=== PATIENT | female | born 1955 | race Caucasian/White ===

== ENCOUNTER 2020-06-21 23:48 | Inpatient (IN) | payer OTHER, MEDICARE ==
[~2020-06-21] VITALS: Ht 165.1 cm; Wt 86.5 kg
[2020-06-22] MEDS ORDERED: ONDANSETRON 2MG/ML, 2ML IVPush ONE
[2020-06-22] MEDS ORDERED: MORPHINE SULFATE 4 MG/ML, 1ML ONE ×2 (00:06→02:25)
[2020-06-22] MEDS ORDERED: ONDANSETRON 2MG/ML, 2ML ONE (00:06)
--- NOTE | 2020-06-22 01:05 | NUR ---
SUMMARY NOTE: THIS PT WAS RUBINA FERNANDEZ. SHE WAS COMING [place], AFTER HAVING "10 BEERS" AND HAD A GLF. PT DENIES DIZZINESS PRIOR TO FALL. PT PLACED ON CARDIAC, BP AND O2 MONITORS. BEDRAILS UP X2. AT BEDSIDE. CALL LIGHT IN REACH.
--- NOTE | 2020-06-22 01:05 | NUR ---
PT PLACED ON 2L O2 AFTER MEDICATION ADMIN.
[2020-06-22] MEDS ORDERED: OMNIPAQUE 350 MG/ML, 100ML BOTTLE ONE (02:12)
[2020-06-22] MEDS ORDERED: ASPI-496 PO (02:23)
[2020-06-22] MEDS ORDERED: MORPHINE SULFATE 4 MG/ML, 1ML IVPush ONE ×2 (02:30)
--- NOTE | 2020-06-22 02:31 | NUR ---
ERP BACK TO BEDSIDE TO UPDATE PT ON POC. AWAITING CONSULT WITH ORTHO.
--- NOTE | 2020-06-22 02:34 | NUR ---
MED REC DONE TO BEST OF PT'S ABILITY.
[2020-06-22] MEDS ORDERED: KETOROLAC 30 MG/1 ML IV PRN (03:00)
[2020-06-22] MEDS ORDERED: DOCUSATE 100 MG CAPSULE PO PRN (03:00)
[2020-06-22] MEDS ORDERED: MELATONIN 5 MG TABLET PO PRN (03:00)
[2020-06-22] MEDS ORDERED: hydrALAzine 20 MG/ML, 1ML IVPush PRN (03:00)
[2020-06-22 03:20] LABS: BASOPHILS # (AUTO) 0.03 x10^3/uL (0-0.1); BASOPHILS % (AUTO) 0 % (0-1); EOSINOPHILS # (AUTO) 0.06 x10^3/uL (0-0.4); EOSINOPHILS % (AUTO) 0 % (1-7); LYMPHOCYTES # (AUTO) 1.72 x10^3/uL (1-3.4); LYMPHOCYTES % (AUTO) 13 % (22-44); MD NO; MEAN CORPUSCULAR HEMOGLOBIN 30.9 pg (27.0-34.8); MEAN CORPUSCULAR HGB CONC 32.9 g/dL (32.4-35.8); MEAN PLATELET VOLUME 7.3 fL (7.4-10.4); MONOCYTES # (AUTO) 0.43 x10^3/uL (0.2-0.8); MONOCYTES % (AUTO) 3 % (2-9); NEUTROPHILS # (AUTO) 11.13 x10^3/uL (1.8-6.8); NEUTROPHILS % (AUTO) 83 % (42-75); PLATELET COUNT 307 x10^3/uL (130-400); RED BLOOD COUNT 3.75 x10^6/uL (3.82-5.3); RED CELL DISTRIBUTION WIDTH 15.6 % (9.6-15.2)
--- NOTE | 2020-06-22 03:20 | NUR ---
REPORT GIVEN TO
[2020-06-22 03:27] LABS: ALANINE AMINOTRANSFERASE 37 U/L (12-78); ALBUMIN 3.3 g/dL (3.4-5.0); ANION GAP 12 mmol/L (5-15); CHLORIDE 96 mmol/L (98-107); CREATININE 0.67 mg/dL (0.55-1.02)
[2020-06-22 03:29] LABS: ALKALINE PHOSPHATASE 64 U/L (45-117); BILIRUBIN,TOTAL 0.2 mg/dL (0.2-1.0); TOTAL PROTEIN 6.6 g/dL (6.4-8.2)
[2020-06-22] MEDS ORDERED: NICOTINE 14MG/24 HR PATCH.TD24 TD ONE (03:30)
[2020-06-22] MEDS ORDERED: blood pressure med (04:10)
[2020-06-22] MEDS ORDERED: ATOR40TA78 PO (04:10)
[2020-06-22 04:11] VITALS: BP 107/71
[2020-06-22] MEDS: ENOXAPARIN 40 MG/0.4 ML SQ SCH (04:37)
[2020-06-22] MEDS: ONDANSETRON 2MG/ML, 2ML IVPush PRN ×3 (04:37→19:36)
[2020-06-22] MEDS: LACTATED RINGERS 1,000 ML IV SCH ×2 (04:38→17:30)
[2020-06-22 07:47] VITALS: BP 126/80
[2020-06-22] MEDS: MORPHINE SULFATE 4 MG/ML, 1ML IVPush PRN ×3 (08:13→19:56)
[2020-06-22] MEDS: ASPIRIN 81 MG TABLET EC PO SCH (08:13)
[2020-06-22] MEDS ORDERED: LACTULOSE 10 GM/15 ML UDC PO PRN (09:00)
[2020-06-22] MEDS: POLYETHYLENE GLYCOL 17 GM PACKET PO SCH (10:13)
[2020-06-22 12:10] VITALS: BP_SYST 119; BP_SYST 138; BP_DIAS 71; BP_DIAS 80
[2020-06-22 19:42] VITALS: BP 117/73
[2020-06-22] MEDS: ATORVASTATIN 40 MG TABLET PO SCH (21:33)
[2020-06-22] MEDS: CYCLOBENZAPRINE 10 MG TABLET PO PRN (21:33)
[2020-06-22] MEDS: ACETAMINOPHEN 325 MG TABLET PO PRN (21:33)
[2020-06-23 00:31] VITALS: BP 99/63
[2020-06-23] MEDS: ONDANSETRON 2MG/ML, 2ML IVPush PRN ×3 (03:11→16:29)
[2020-06-23] MEDS: MORPHINE SULFATE 4 MG/ML, 1ML IVPush PRN ×3 (03:11→16:29)
[2020-06-23] MEDS: ENOXAPARIN 40 MG/0.4 ML SQ SCH (03:12)
[2020-06-23] MEDS: LACTATED RINGERS 1,000 ML IV SCH (05:20)
[2020-06-23] MEDS: CYCLOBENZAPRINE 10 MG TABLET PO PRN ×3 (05:20→23:35)
[2020-06-23 06:13] LABS: ANION GAP 6 mmol/L (5-15); CALCIUM 8.7 mg/dL (8.5-10.1); CHLORIDE 97 mmol/L (98-107); CREATININE 0.58 mg/dL (0.55-1.02)
[2020-06-23 06:19] LABS: BASOPHILS # (AUTO) 0.03 x10^3/uL (0-0.1); BASOPHILS % (AUTO) 0 % (0-1); EOSINOPHILS # (AUTO) 0.09 x10^3/uL (0-0.4); EOSINOPHILS % (AUTO) 1 % (1-7); LYMPHOCYTES % (AUTO) 18 % (22-44); MD NO; MEAN CORPUSCULAR HGB CONC 32.7 g/dL (32.4-35.8); MEAN CORPUSCULAR VOLUME 94.7 fL (80-100); MEAN PLATELET VOLUME 7.7 fL (7.4-10.4); MONOCYTES # (AUTO) 0.53 x10^3/uL (0.2-0.8); MONOCYTES % (AUTO) 8 % (2-9); NEUTROPHILS # (AUTO) 5.11 x10^3/uL (1.8-6.8); NEUTROPHILS % (AUTO) 72 % (42-75); PLATELET COUNT 250 x10^3/uL (130-400); RED BLOOD COUNT 3.42 x10^6/uL (3.82-5.3); RED CELL DISTRIBUTION WIDTH 15.9 % (9.6-15.2)
[2020-06-23 08:17] VITALS: BP 88/60
[2020-06-23] MEDS: POLYETHYLENE GLYCOL 17 GM PACKET PO SCH (09:00)
[2020-06-23] MEDS: ASPIRIN 81 MG TABLET EC PO SCH (09:12)
[2020-06-23] MEDS: LACTULOSE 10 GM/15 ML UDC PO SCH ×2 (09:12→19:42)
[2020-06-23 13:30] VITALS: BP 106/65
[2020-06-23 19:00] VITALS: BP 101/65
[2020-06-23] MEDS: ACETAMINOPHEN 325 MG TABLET PO PRN (19:42)
[2020-06-23] MEDS: ATORVASTATIN 40 MG TABLET PO SCH (19:42)
[2020-06-24 01:29] VITALS: BP 107/69
[2020-06-24] MEDS: ACETAMINOPHEN 325 MG TABLET PO PRN ×4 (03:37→21:14)
[2020-06-24] MEDS: ENOXAPARIN 40 MG/0.4 ML SQ SCH (03:38)
[2020-06-24 06:56] VITALS: BP 105/57
[2020-06-24] MEDS ORDERED: BISACODYL 10 MG SUPP PR ONE (08:30)
[2020-06-24 08:45] VITALS: BP 105/62
[2020-06-24] MEDS: POLYETHYLENE GLYCOL 17 GM PACKET PO SCH (09:22)
[2020-06-24] MEDS: ASPIRIN 81 MG TABLET EC PO SCH (09:27)
[2020-06-24] MEDS: CYCLOBENZAPRINE 10 MG TABLET PO PRN ×2 (09:29→21:15)
[2020-06-24] MEDS: LACTULOSE 10 GM/15 ML UDC PO SCH ×2 (09:30→21:00)
[2020-06-24] MEDS: MORPHINE SULFATE 4 MG/ML, 1ML IVPush PRN ×2 (10:13→16:17)
[2020-06-24] MEDS ORDERED: BISACODYL 10 MG SUPP ONE (12:33)
[2020-06-24 14:11] VITALS: BP 90/60
[2020-06-24] MEDS ORDERED: CYCL-259 PO (15:01)
[2020-06-24] MEDS ORDERED: TRAM50TA2 PO (15:01)
[2020-06-24] MEDS: ATORVASTATIN 40 MG TABLET PO SCH (21:14)
[2020-06-24 21:41] VITALS: BP 100/65
[2020-06-25] MEDS: ACETAMINOPHEN 325 MG TABLET PO PRN ×2 (01:03→07:59)
[2020-06-25 01:44] VITALS: BP 101/63
[2020-06-25] MEDS: ENOXAPARIN 40 MG/0.4 ML SQ SCH (04:57)
[2020-06-25] MEDS: CYCLOBENZAPRINE 10 MG TABLET PO PRN (05:01)
[2020-06-25 07:34] VITALS: BP 115/66
[2020-06-25] MEDS: ASPIRIN 81 MG TABLET EC PO SCH (07:59)
[2020-06-25] MEDS ORDERED: MELA5TAB14 PO (08:44)
[2020-06-25] MEDS ORDERED: ATOR40TA78 PO (08:44)
[2020-06-25] MEDS ORDERED: DOCU100C33 PO (08:44)
[2020-06-25] MEDS: LACTULOSE 10 GM/15 ML UDC PO SCH (09:00)
[2020-06-25] MEDS: POLYETHYLENE GLYCOL 17 GM PACKET PO SCH (09:00)
== END 2020-06-25 10:10 | DRG 552 ==
LOC: ED 06-22 00:18 → EDIP 06-22 03:55 → 4NE 06-22 04:02
PROVIDERS: ADMIT Hospitalist; ATTEND Family Medicine
DX: S32.119A Unspecified Zone I fracture of sacrum, initial encounter for closed fracture (principal); S32.591A Other specified fracture of right pubis, initial encounter for closed fracture; S32.592A Other specified fracture of left pubis, initial encounter for closed fracture; F10.120 Alcohol abuse with intoxication, uncomplicated; F17.210 Nicotine dependence, cigarettes, uncomplicated; I10 Essential (primary) hypertension; G89.11 Acute pain due to trauma; I25.10 Atherosclerotic heart disease of native coronary artery without angina pectoris; K59.00 Constipation, unspecified; W01.0XXA Fall on same level from slipping, tripping and stumbling without subsequent striking against object, initial encounter; Z90.710 Acquired absence of both cervix and uterus; Z98.61 Coronary angioplasty status; Z90.49 Acquired absence of other specified parts of digestive tract; Y93.89 Activity, other specified; Y92.89 Other specified places as the place of occurrence of the external cause; Y99.8 Other external cause status; Z88.5 Allergy status to narcotic agent; Z03.818 Encounter for observation for suspected exposure to other biological agents ruled out
CPT/HCPCS: 36415; 72190; 72192; 74018; 80048; 80053; 83735; 84100; 84443; 85025; 87635; 96374; 96375; 96376; G0378; J1650; J2405; Q9967; J2270; J7120